=== PATIENT | female | born 1965 | race Caucasian/White ===

== ENCOUNTER 2016-09-26 19:51 | Inpatient (IN) | payer OTHER ==
[~2016-09-26] VITALS: Ht 162.6 cm; Wt 78.1 kg
[2016-09-26 19:53] VITALS: BP 125/84; PULSE 78; RESP 16; TEMP 98; O2SAT 96
[2016-09-26] MEDS ORDERED: LISI10TA3 PO (21:01)
[2016-09-26] MEDS ORDERED: ACETAMINOPHEN/HYDROcodone 325 MG/5 MG TAB PO ONE (21:15)
--- NOTE | 2016-09-26 21:33 | RADRPT ---
EXAM DATE/TIME: 09/26/2016 21:18 [facility] COMPARISON: No previous studies available for comparison. INDICATIONS : Fall down stairs. Left elbow pain. MEDICAL HISTORY : None. SURGICAL HISTORY : None. ENCOUNTER: Initial ACUITY: 1 day PAIN SCORE: 8/10 LOCATION: Left upper extremity FINDINGS: Multiple view examination of the left elbow demonstrates mildly displaced fracture through the olecra non. Extensive soft tissue swelling. Positive joint effusion. CONCLUSION: Mildly displaced fracture through the olecranon. Kedar Stack MD on September 26, 2016 at 21:31 Board Certified Radiologist. This report was verified electronically.
--- NOTE | 2016-09-26 21:59 | PD ---
HPI Chief Complaint: Fall Time Seen by Provider: 21:00 Travel History International Travel<30 days: No Contact w/Intl Traveler<30days: No Traveled to known affect area: No History of Present Illness HPI Is a 41-year-old right handed woman presents to the emergency room on a left elbow pain. She reportedly slipped on some stairs one water transplant. She fell onto her left elbow. She has significant pain and swelling on the outside the left elbow. She has pain with full range of motion. This happened about 2 hours prior to arrival. She takes a baby aspirin daily. Denies seeing her head. She did skin her knees but feels that the knees are otherwise uninjured. No other complaints. History Past Medical History Narrative Medical Hypertension Tetanus Vaccination: > 5 Years Influenza Vaccination: No Past Surgical History Surgical History: No Previous Surgery Social History Alcohol Use: Yes (SOCIALLY) Tobacco Use: No Allergies-Medications (Allergen,Severity, Reaction): Coded Allergies: No Known Allergies (Unverified , 09/26/16) Reported Meds & Prescriptions Reported Meds & Active Scripts Active Reported Lisinopril 10 Mg Tab 10 Mg PO DAILY Review of Systems Except as stated in HPI: all other systems reviewed are Neg Physical Exam Narrative GENERAL: Well-appearing 51 year-old woman, no acute distress. HEAD: Atraumatic. Normocephalic. EYES: Pupils equal and round. No scleral icterus. No injection or drainage. ENT: No nasal bleeding or discharge. Mucous membranes pink and moist. NECK: Trachea midline. No JVD. CARDIOVASCULAR: Regular rate and rhythm. No murmur appreciated. RESPIRATORY: No accessory muscle use. Clear to auscultation. Breath sounds equal bilaterally. GASTROINTESTINAL: Abdomen soft, non-tender, nondistended. Hepatic and splenic margins not palpable. MUSCULOSKELETAL: Focus examination the left arm reveals swelling and tenderness over the outside of the left elbow. There is an abrasion there. She has pain with range of motion. Distally she is neurovascularly intact. NEUROLOGICAL: Awake and alert. No obvious cranial nerve deficits. Motor grossly within normal limits. Normal speech. PSYCHIATRIC: Appropriate mood and affect; insight and judgment normal. Data Data Last Documented VS Vital Signs Date Time Temp Pulse Resp B/P Pulse Ox O2 Delivery O2 Flow Rate FiO2 09/26/16 22:10 16 09/26/16 21:01 99 Room Air 09/26/16 19:53 98.0 78 125/84 Orders Elbow, Complete (4 Vws) (09/26/16 ) Acetamin-Hydrocod 325-5 Mg ([place] 5-325 (09/26/16 21:15) Ice/Cold Pack (09/26/16 21:48) Complete Blood Count With Diff (09/26/16 21:55) Comprehensive Metabolic Panel (09/26/16 21:55) Act Partial Throm Time (Ptt) (09/26/16 21:55) Prothrombin Time / Inr (Pt) (09/26/16 21:55) Iv Access Insert/Monitor (09/26/16 21:55) Chest, Single Ap (09/26/16 ) Electrocardiogram (09/26/16 ) Sodium Chlor 0.9% 1000 Ml Inj (Ns 1000 M (09/26/16 22:00) Consult Orthopedic (09/26/16 ) (Hub Use Only)Inp Phy Cons/Ref (09/26/16 ) Admit To Inpatient (09/26/16 ) Vital Signs (Adult) Q4H (09/26/16 22:06) Activity Oob With Assistance (09/26/16 22:06) Diet Npo (09/27/16 Breakfast) Sodium Chlor 0.9% 1000 Ml Inj (Ns 1000 M (09/26/16 22:06) Sodium Chloride 0.9% Flush (Ns Flush) (09/26/16 22:15) Sodium Chloride 0.9% Flush (Ns Flush) (09/27/16 09:00) Ondansetron Inj (Zofran Inj) (09/26/16 22:15) Comprehensive Metabolic Panel (09/27/16 06:00) Complete Blood Count With Diff (09/27/16 06:00) Acetaminophen (Tylenol) (09/26/16 22:15) Acetamin-Hydrocod 325-5 Mg ([place] 5-325 (09/26/16 22:15) Morphine Inj (Morphine Inj) (09/26/16 22:15) Docusate Sodium-Senna (Erinn-Colace) (09/27/16 09:00) Magnesium Hydroxide Liq (Milk Of Magnesi (09/26/16 22:15) Sennosides (Senokot) (09/26/16 22:15) Bisacodyl Supp (Dulcolax Supp) (09/26/16 22:15) Lactulose Liq (Lactulose Liq) (09/26/16 22:15) Inpatient Certification (09/26/16 ) Admit Order (Ed Use Only) (09/26/16 ) Sling Cradle Arm (09/26/16 ) Fiberglass Splint Elbow Adult (09/26/16 ) Splint Or Brace Apply/Monitor (09/26/16 22:26) Labs Laboratory Tests Test 09/26/16 22:00 White Blood Count 7.9 TH/MM3 Red Blood Count 4.58 MIL/MM3 Hemoglobin 14.7 GM/DL Hematocrit 43.0 % Mean Corpuscular Volume 93.8 FL Mean Corpuscular Hemoglobin 32.1 PG Mean Corpuscular Hemoglobin 34.2 % Concent Red Cell Distribution Width 13.3 % Platelet Count 253 TH/MM3 Mean Platelet Volume 6.9 FL Neutrophils (%) (Auto) 63.8 % Lymphocytes (%) (Auto) 25.5 % Monocytes (%) (Auto) 6.7 % Eosinophils (%) (Auto) 3.6 % Basophils (%) (Auto) 0.4 % Neutrophils # (Auto) 5.0 TH/MM3 Lymphocytes # (Auto) 2.0 TH/MM3 Monocytes # (Auto) 0.5 TH/MM3 Eosinophils # (Auto) 0.3 TH/MM3 Basophils # (Auto) 0.0 TH/MM3 CBC Comment DIFF FINAL Differential Comment MDM Medical Decision Making Medical Screen Exam Complete: Yes Emergency Medical Condition: Yes Interpretation(s) Left elbow: Mildly displaced fracture through the olecranon. Differential Diagnosis Elbow fracture, contusion, strain or sprain, other Narrative Course Medical decision making This is a 51 year-old woman with left elbow fracture. She has a comminuted olecranon fracture with some distraction. I spoke with Kyler Ying, with Dr. Chirinos. Recommend admission for surgical repair. Diagnosis Primary Impression: Olecranon fracture Indra Dias MD Sep 26, 2016 21:59
[2016-09-26] MEDS ORDERED: SODIUM CHLOR 0.9% 1000 ML INJ 1,000 ML IV SCH (22:00)
--- NOTE | 2016-09-26 22:12 | HHI.HP ---
[facility] Primary Care Physician Non-Staff Admission Diagnosis Diagnoses: (1) Fall Diagnosis: Principal (2) Elbow fracture Diagnosis: Principal (3) Dehydration Diagnosis: Principal (4) HTN (hypertension) Diagnosis: Principal Travel History International Travel<30 Days: No Contact w/Intl Traveler <30 Da: No Traveled to Known Affected Are: No History of Present Illness This is a 51-year-old female with a PMH of HTN who presented to the ER with complaints of left elbow pain following fall. States she went to go water her friends plant and slipped on wet pavement as it had just rained. Denies any LOC or head trauma. On arrival, BP 125/84, HR 78, O2 sat 96% on RA, Afebrile. Chemistry essentially unremarkable except for GFR 83. INR 0.9. CXR with left basilar atelectasis. Elbow X-ray with mildly displaced fracture through the olecranon. Review of Systems Except as stated in HPI: all other systems reviewed are Neg ROS: 14 point review of systems otherwise negative. Past Family Social History Past Medical History PMH: HTN Past Surgical History PAST SURGICAL HISTORY: None Allergies: Coded Allergies: No Known Allergies (Unverified , 09/26/16) Family History PAST FAMILY HISTORY: Reviewed. No h/o DM or CAD Social History PAST SOCIAL HISTORY: Occasional alcohol. Negative for tobacco or drugs. Physical Exam Vital Signs Vital Signs Date Time Temp Pulse Resp B/P Pulse Ox O2 Delivery O2 Flow Rate FiO2 09/26/16 22:10 16 09/26/16 21:01 16 99 Room Air 09/26/16 19:53 98.0 78 16 125/84 96 Room Air Physical Exam PE: GENERAL: Pleasant middle-aged white female in no acute distress. HEENT: PERRLA, EOMI. No scleral icterus or conjunctival pallor. No lid lag or facial droop. CARDIOVASCULAR: Regular rate and rhythm. No obvious murmurs to auscultation. No chest tenderness to palpation. RESPIRATORY: No obvious rhonchi or wheezing. Clear to auscultation. Breath sounds equal bilaterally. GASTROINTESTINAL: Abdomen soft, non-tender, nondistended. BS normal. MUSCULOSKELETAL: Extremities without clubbing, cyanosis, or edema. No obvious deformities. Decreased ROM of LUE due to injury. NEUROLOGICAL: Awake, alert and oriented x4. No focal neurologic deficits. Moving both upper and lower extremities spontaneously. Assessment and Plan Problem List: (1) Fall ICD Code: W19.XXXA Status: Acute (2) Elbow fracture ICD Code: S42.409A Status: Acute (3) Dehydration ICD Code: E86.0 Status: Acute (4) HTN (hypertension) ICD Code: I10 Status: Acute Assessment and Plan A/P: 1. Fall: s/p mechanical slip and fall on wet pavement, no LOC or head trauma reported. 2. Left Elbow Fx: s/p fall. X-ray w/ mildly displaced fracture through olecranon, images reviewed by me. Ortho consulted by ER physician, plan is for surgical intervention in am. NPO, IVF, analgesics/antiemetics as needed. 3. Dehydration: GFR 83, BUN/Creatinine normal, IVF for hydration, repeat labs in am. 4. HTN: Controlled. Monitor BP. 5. DVT Prophylaxis: Anticoagulation post op per Ortho 6. Social work for d/c planning as needed. 7. Case discussed w/ ER physician at length Physician Certification 2 Midnight Certification Type: Admission for Inpatient Services Order for Inpatient Services The services are ordered in accordance with Medicare regulations or non- Medicare payer requirements, as applicable. In the case of services not specified as inpatient-only, they are appropriately provided as inpatient services in accordance with the 2-midnight benchmark. Estimated LOS (days): 2 days is the estimated time the patient will need to remain in the hospital, assuming treatment plan goals are met and no additional complications. Post-Hospital Plan: Not yet determined Akanksha Mills MD Sep 26, 2016 22:12
[2016-09-26] MEDS ORDERED: SODIUM CHLORIDE 0.9% FLUSH 10 ML FLUSH IV FLUSH PRN (22:15)
[2016-09-26] MEDS ORDERED: MAGNESIUM HYDROXIDE SUSP 30 ML CUP PO PRN (22:15)
[2016-09-26] MEDS ORDERED: ACETAMINOPHEN 325 MG TAB PO PRN (22:15)
[2016-09-26] MEDS ORDERED: ONDANSETRON HCL 4 MG/2 ML VIAL IVP PRN (22:15)
[2016-09-26] MEDS ORDERED: ACETAMINOPHEN/HYDROcodone 325 MG/5 MG TAB PO PRN (22:15)
[2016-09-26] MEDS ORDERED: MORPHINE SULFATE 4 MG/ML INJ IV PRN (22:15)
[2016-09-26] MEDS ORDERED: BISACODYL 10 MG SUPP RECTAL PRN (22:15)
[2016-09-26] MEDS ORDERED: SENNOSIDES 8.6 MG TAB PO PRN (22:15)
[2016-09-26] MEDS ORDERED: LACTULOSE SYRUP 20 GM/30 ML CUP PO PRN (22:15)
--- NOTE | 2016-09-26 22:15 | RADRPT ---
EXAM DATE/TIME: 09/26/2016 21:59 [facility] COMPARISON: No previous studies available for comparison. INDICATIONS : Evaluate for pneumonia, pneumothorax or communicable disease. Pre op for left elbow fracture. MEDICAL HISTORY : None. SURGICAL HISTORY : None. ENCOUNTER: Initial ACUITY: 1 day PAIN SCORE: 0/10 LOCATION: chest FINDINGS: A single view of the chest is obtained. No evidence of mass, infiltrate or effusion. Minimal linear densities left lung base. The cardiomediastinal contours are unremarkable. Osseous structures are in tact. CONCLUSION: Left basilar subsegmental atelectasis. Kedar Stack MD on September 26, 2016 at 22:12 Board Certified Radiologist. This report was verified electronically.
[2016-09-26] MEDS: SODIUM CHLOR 0.9% 1000 ML INJ 1,000 ML IV SCH (22:19)
[2016-09-26 22:21] LABS: BASOPHIL % 0.4 % (0.0-2.0); EOSINOPHIL # 0.3 TH/MM3 (0-0.4); EOSINOPHIL % 3.6 % (0.0-4.0); HEMO FLAGS DIFF FINAL; LYMPH % 25.5 % (9.0-44.0); MEAN CELL VOLUME 93.8 FL (80.0-100.0); MEAN CORPUSCULAR HEMOGLOBIN 32.1 PG (27.0-34.0); MEAN CORPUSCULAR HGB CONC 34.2 % (32.0-36.0); MONO % 6.7 % (0.0-8.0); NEUT % 63.8 % (16.0-70.0); PLATELET COUNT 253 TH/MM3 (150-450); RED BLOOD COUNT 4.58 MIL/MM3 (4.00-5.30); RED CELL DISTRIBUTION WIDTH 13.3 % (11.6-17.2); WHITE BLOOD COUNT 7.9 TH/MM3 (4.0-11.0)
[2016-09-26 22:44] LABS: ALT (GPT) 37 U/L (10-53)
[2016-09-26 22:47] LABS: ALKALINE PHOSPHATASE 84 U/L (45-117); TOTAL BILIRUBIN ADULT 0.3 MG/DL (0.2-1.0)
[2016-09-26 22:48] LABS: APTT (PATIENT) 27.5 SEC (24.3-30.1); INTERNATIONAL NORMALIZED RATIO 0.9 RATIO
[2016-09-26 23:02] LABS: ANION GAP 10 MEQ/L (5-15); AST (GOT) 49 U/L (15-37); BICARBONATE 22.9 MEQ/L (21.0-32.0); BLOOD UREA NITROGEN 16 MG/DL (7-18); CHLORIDE 101 MEQ/L (98-107); GLOMERULAR FILTRATION RATE 83 ML/MIN (>89); POTASSIUM 4.5 MEQ/L (3.5-5.1); SODIUM (NA) 134 MEQ/L (136-145)
[2016-09-26 23:34] VITALS: BP 118/64
[2016-09-27 00:06] VITALS: BP 125/69; PULSE 75; RESP 18; TEMP 97.2; O2SAT 94
[2016-09-27] MEDS ORDERED: ASPI81CH CHEW (00:30)
[2016-09-27] MEDS ORDERED: SODIUM CHLORID 0.9% 500 ML IV PRN (01:15)
[2016-09-27] MEDS ORDERED: LACTATED RINGER'S 1000 ML IV PRN (01:15)
[2016-09-27 04:10] VITALS: BP 110/65; PULSE 73; RESP 18; TEMP 98; O2SAT 95
[2016-09-27] MEDS ORDERED: ENALAPRILAT 1.25 MG/ML VIAL IV PRN (06:00)
[2016-09-27] MEDS ORDERED: cloNIDine HCL 0.1 MG TAB PO PRN (06:00)
[2016-09-27] MEDS ORDERED: HYDR-3580 PO (06:37)
--- NOTE | 2016-09-27 06:38 | PD.ORT.PN ---
Subjective Subjective Remarks s/p fall at home left elbow pain. no other complaints. Objective Vitals Vital Signs Date Time Temp Pulse Resp B/P Pulse Ox O2 Delivery O2 Flow Rate FiO2 09/27/16 04:10 98.0 73 18 110/65 95 09/27/16 00:06 97.2 75 18 125/69 94 09/26/16 23:34 72 16 118/64 100 09/26/16 22:10 16 09/26/16 21:01 16 99 Room Air 09/26/16 19:53 98.0 78 16 125/84 96 Room Air Result Diagram: 09/26/16219909/26/162199 Other Results Laboratory Tests Test 09/26/16 22:00 Prothrombin Time 10.0 SEC (9.8-11.6) Prothromb Time International 0.9 RATIO Ratio Objective Remarks LUE: +long arm splint .intact. NVI Assessment & Plan Assessment and Plan 1) Left Olecranon Fx -npo -sign consents -surgery this AM Jose Luis Garcia Sep 27, 2016 06:38
[2016-09-27 06:40] LABS: AUTOMATED NEUTROPHIL # 4.8 TH/MM3 (1.8-7.7); BASOPHIL % 0.5 % (0.0-2.0); EOSINOPHIL # 0.2 TH/MM3 (0-0.4); EOSINOPHIL % 2.7 % (0.0-4.0); HEMATOCRIT 35.3 % (35.0-46.0); HEMO FLAGS DIFF FINAL; LYMPHOCYTE # 1.7 TH/MM3 (1.0-4.8); MEAN CELL VOLUME 92.5 FL (80.0-100.0); MEAN CORPUSCULAR HEMOGLOBIN 32.3 PG (27.0-34.0); MEAN CORPUSCULAR HGB CONC 34.9 % (32.0-36.0); MONO % 7.9 % (0.0-8.0); NEUT % 65.9 % (16.0-70.0); PLATELET COUNT 209 TH/MM3 (150-450); RED BLOOD COUNT 3.81 MIL/MM3 (4.00-5.30); RED CELL DISTRIBUTION WIDTH 13.4 % (11.6-17.2); WHITE BLOOD COUNT 7.3 TH/MM3 (4.0-11.0)
[2016-09-27 06:44] LABS: ALKALINE PHOSPHATASE 56 U/L (45-117); ALT (GPT) 28 U/L (10-53); ANION GAP 11 MEQ/L (5-15); AST (GOT) 21 U/L (15-37); BICARBONATE 22.9 MEQ/L (21.0-32.0); BLOOD UREA NITROGEN 13 MG/DL (7-18); CHLORIDE 103 MEQ/L (98-107); GLOMERULAR FILTRATION RATE 101 ML/MIN (>89); POTASSIUM 4.1 MEQ/L (3.5-5.1); SODIUM (NA) 137 MEQ/L (136-145); TOTAL BILIRUBIN ADULT 0.4 MG/DL (0.2-1.0)
[2016-09-27] MEDS: SODIUM CHLOR 0.9% 1000 ML INJ 1,000 ML IV SCH (08:06)
[2016-09-27] MEDS: DOCUSATE SODIUM 50 MG/SENNA 8.6 MG TAB PO SCH ×2 (08:15→19:17)
[2016-09-27] MEDS: SODIUM CHLORIDE 0.9% FLUSH 10 ML FLUSH IV FLUSH SCH ×2 (08:16→19:17)
[2016-09-27 08:20] VITALS: BP 123/70; PULSE 80; RESP 16; TEMP 97.1; O2SAT 97
--- NOTE | 2016-09-27 08:46 | MB ---
cc: TOM AUGUST CAMILLE MD DATE OF CONSULTATION: 09/27/2016 REASON FOR CONSULTATION: Left olecranon fracture. CONSULTING PHYSICIAN: Dr. Mills. HISTORY Phuong is a 51 year-old female who has a history of hypertension. She was going to water plants for a friend. She stepped on the wet pavement because of the rain. She had immediate left elbow pain. She landed directly on the left elbow. She had pain with elbow motion. She denies any dizziness, syncope, loss of consciousness. She was in the emergency room. X-rays revealed a comminuted left olecranon fracture. She is currently awake and on the orthopedic floor. Her only complaint is her left elbow. The pain is worse with movement and has improved with rest. PAST MEDICAL HISTORY ILLNESSES: Hypertension SURGERIES None ALLERGIES None. MEDICATIONS 1. Lisinopril. 2. Aspirin. SOCIAL HISTORY The patient denies tobacco or drug use. She drinks alcohol occasionally. FAMILY HISTORY Noncontributory. REVIEW OF SYSTEMS The patient denies headache, visual changes, neck pain, chest pain, shortness of breath, abdominal pain, nausea, vomiting or recent weight loss. She complains of left elbow pain. Pain is worse with movement. PHYSICAL EXAMINATION The patient is a pleasant 51 year-old female in no acute distress. She is awake and alert. She is alert and oriented x3. VITAL SIGNS: Temperature 90.0, pulse 73, respirations 18, blood pressure 110/65, O2 sat 95% on room air. Head: The patient is a normocephalic. Pupils are equal. Neck: Soft, nontender. Trachea is midline. Abdomen: Soft, nontender, nondistended. Extremities: Examination of the left arm reveals no tenderness in her shoulder, wrist or fingers. She has pain with any elbow motion. She has mild swelling around the elbow. She has tenderness to palpation of the olecranon. She has good capillary refill of her fingers. Sensation is grossly intact in all fingers. Examination of right arm reveals no pain with shoulder, elbow, wrist motion. Skin is intact. Radial pulse is palpable. Sensation is intact in all fingers. Examination of the bilateral lower extremities reveals no pain with hip, knee or ankle motion. Skin is intact. Dorsalis pedis pulse is palpable. X-RAYS: X-rays of the left elbow were reviewed. X-rays reveal comminuted left olecranon fracture. IMPRESSION Comminuted left olecranon fracture. PLAN Treatment options were discussed with the patient. I discussed both surgical and nonsurgical options. The risks of surgery include bleeding, infection, injury to arteries, nerves, or blood vessels, nonunion, malunion, painful hardware, loss of motion, elbow stiffness, elbow arthritis as well as medical complications associated anesthesia. All questions were answered. I will plan on surgery today. A mid-level provider in my office, nurse practitioner or PA, may see this patient on a follow-up basis and continue to implement the objective of this plan including: Starting or adjusting medications, injections of muscle, tendon, bursa or joints, cast application, orthotic or brace application, physical therapy, further radiographic studies including x-ray, MRI, CT, ultrasounds or bone scan, vascular studies, neurologic studies, or other specialist consultations, and proceeding with surgical management as appropriate. MD KULWINDER Martinez/CARLOS /7:03 AM /8:39 AM
[2016-09-27] MEDS ORDERED: VANCOMYCIN HCL 1000 MG VIAL ONE (08:55)
[2016-09-27] MEDS ORDERED: ceFAZolin 2 GM PREMIX 50 ML ONE (08:56)
[2016-09-27] MEDS ORDERED: GENTAMICIN SULFATE 80 MG/2 ML VIAL ONE (08:56)
[2016-09-27] MEDS: LISINOPRIL 10 MG TAB PO SCH (09:00)
[2016-09-27] MEDS ORDERED: fentaNYL CITRATE 250 MCG/5 ML AMP ONE (09:21)
[2016-09-27] MEDS ORDERED: BACITRACIN OPHT OINT 3.5 GM TUBO ONE (10:21)
[2016-09-27] MEDS ORDERED: BACITRACIN TOP OINT 15 GM TUBE ONE (10:21)
--- NOTE | 2016-09-27 10:36 | PD.OP ---
cc: Moshe Chirinos MD Operative Report Date of Surgery: Sep 27, 2016 Preoperative Diagnosis: Comminuted left olecranon fracture Postoperative Diagnosis: Procedure: Open reduction internal fixation left olecranon fracture Anesthesia: Gen. Surgeon: Moshe Chirinos Asset Card Clerk(s): BUCKY Lawson PA-C The surgical procedure was assisted by my physician safety assistant. My P.A. presence was necessary throughout this case for the manipulation and positioning of the surgical extremity. My P.A. was assisting me throughout the duration of this procedure. The skill set of a physician safety assistant was medically necessary to complete this procedure. During the surgical case the director surgical was working at the back table and the physician safety assistant was directly assisting me. Operation and Findings: Patient was seen and evaluated preoperatively. Patient was found to have a displaced intra-articular olecranon fracture. The risk and benefits of the surgery were discussed in depth and informed consent was obtained. Risk of surgery include bleeding, infection, painful hardware, wound, case, elbow stiffness, loss of motion, elbow arthritis, injuries to arteries nerves or blood vessels, weakness and numbness of hand, as well as medical complications associated with general anesthesia. All questions were answered. Patient was brought to operating room. IV sedation and anesthesia were administered. Patient was placed into a lateral decubitus position. Timeout procedure was performed. IV antibiotics were administered prior to incision. The operative arm was prepped with alcohol followed by Hibiclens and draped in usual sterile fashion. Procedure began with a 2 inch incision over the olecranon. Patient had a large and deep abrasion over the proximal ulna. The incision was short and out of the abrasion to avoid possible wound infection. He has of the skin abrasion screw fixation was utilized for stabilization of the fracture instead of the plate. Subcutaneous tissue dissected with Bovie. Fracture site was visualized. Fascia was elevated around the fracture site. There was mild comminution of the fracture site. Fracture fragments were gently manipulated. The fracture was manually reduced. Multiple K wires were placed for provisional fixation. Fluoroscopy confirmed excellent alignment of fracture. At this point a 3.5 cortical screw was placed across the fracture site from the tip the olecranon to the anterior aspect of the ulna. The screws predrilled and premeasured for appropriate length. Next a guidepin for the Synthes 6.5 cannulated screws were placed from the tip of the olecranon into the shaft of the ulna. Fluoroscopy confirmed guidepin placement. Screw length was measured. A cannulated drill was placed over the guidepin. A 110 mm lag screw was placed over the wire. K wires were removed. Final fluoroscopy revealed excellent of fractures well-placed hardware. Articular surface appeared to be in near anatomic alignment. Wound was now thoroughly irrigated. Incision was now closed with #1 Vicryl, 3-0 Vicryl, and adelfo. Sterile dressings were applied. Patient's placed a well molded well-padded splint. Patient was transferred to recovery in stable condition. Moshe Chirinos MD Sep 27, 2016 10:36
[2016-09-27] MEDS ORDERED: Post-op Orders (for Pharmacy) MISC XX ONE (10:45)
[2016-09-27] MEDS ORDERED: MORPHINE SULFATE 4 MG/ML INJ IV PUSH PRN (10:45)
--- NOTE | 2016-09-27 10:45 | HHI.DCPOC ---
Discharge Care Plan Diagnosis: (1) Olecranon fracture Your Health Problems Are: Difficulty with ADL Exercise Tolerance Goals to Promote Your Health * To prevent worsening of your condition and complications * To maintain your health at the optimal level Directions to Meet Your Goals Take your medications as prescribed Follow your dietary instruction Follow activity as directed Keep your appointments as scheduled Take your immunizations and boosters as scheduled If your symptoms worsen call your PCP, if no PCP go to Urgent Care Center or Emergency Room Smoking is Dangerous to Your Health. Avoid second hand smoke Call the 24-hour hour crisis hotline for domestic abuse at Chris Cruz MD Sep 27, 2016 10:45
[2016-09-27] MEDS ORDERED: DO NOT ADM ANY ANTICOAGULANT DRUGS PRN (10:51)
[2016-09-27] MEDS ORDERED: *morphine SULFATE 8 MG/ML PERIprocedure ONLY ONE ×2 (11:08→11:17)
--- NOTE | 2016-09-27 11:19 | RADRPT ---
EXAM DATE/TIME: 09/27/2016 10:26 [facility] COMPARISON: ELBOW LEFT COMPLETE (4 VWS), September 26, 2016, 21:18. INDICATIONS : Left elbow fracture. MEDICAL HISTORY : None. SURGICAL HISTORY : None. ENCOUNTER: Initial ACUITY: 1 day PAIN SCORE: Non-responsive. LOCATION: Left elbow. FINDINGS: Surgical pins traverse the olecranon with excellent anatomical alignment of the fracture fragments. CONCLUSION: Intact postsurgical changes. Joon Enriquez MD on September 27, 2016 at 11:17 Board Certified Radiologist. This report was verified electronically.
[2016-09-27 12:40] VITALS: BP 116/67; PULSE 81; RESP 16; TEMP 97.6; O2SAT 94
--- NOTE | 2016-09-27 12:53 | HHI.PR ---
Subjective Remarks Follow-up left olecranon fracture. Tolerated surgery complaining of pain. Anesthesia records reviewed. Seen with . Discussed with RN, possible discharge later today when cleared by orthopedic surgery Objective Vitals Vital Signs Date Time Temp Pulse Resp B/P Pulse Ox O2 Delivery O2 Flow Rate FiO2 09/27/16 11:45 82 16 134/77 97 Nasal Cannula 2 09/27/16 11:30 76 16 129/77 97 Nasal Cannula 2 09/27/16 11:15 76 16 152/69 97 Nasal Cannula 2 09/27/16 11:00 88 16 152/81 99 Nasal Cannula 2 09/27/16 10:55 98.0 90 16 166/87 99 Nasal Cannula 2 09/27/16 08:20 97.1 80 16 123/70 97 09/27/16 04:10 98.0 73 18 110/65 95 09/27/16 00:06 97.2 75 18 125/69 94 09/26/16 23:34 72 16 118/64 100 09/26/16 22:10 16 09/26/16 21:01 16 99 Room Air 09/26/16 19:53 98.0 78 16 125/84 96 Room Air I/O 09/26/16 09/26/16 09/26/16 09/27/16 09/27/16 09/27/16 07:00 15:00 23:00 07:00 15:00 23:00 Intake Total 498 ml 50 ml Balance 498 ml 50 ml Intake IV Total 498 ml 50 ml # Voids 1 Result Diagram: 09/27/16 0604 09/27/16 0604 Imaging Last Impressions Elbow X-Ray 09/27/16 0000 Signed Impressions: Service Date/Time: Tuesday, September 27, 2016 10:26 - CONCLUSION: Intact postsurgical changes. Joon Enriquez MD Chest X-Ray 09/26/16 0000 Signed Impressions: Service Date/Time: Monday, September 26, 2016 21:59 - CONCLUSION: Left basilar subsegmental atelectasis. Kedar Stack MD Objective Remarks Well-developed, well-nourished in no distress Lungs are clear equal in expansion Regular rate and rhythm Abdomen soft nontender Left upper extremity with dry clean dressing Alert and oriented Procedures ORIF left olecranon fracture A/P Problem List: (1) Fall ICD Code: W19.XXXA Status: Acute (2) Elbow fracture ICD Code: S42.409A Status: Acute (3) Dehydration ICD Code: E86.0 Status: Acute (4) HTN (hypertension) ICD Code: I10 Status: Acute Assessment and Plan 1. Fall: s/p mechanical slip and fall on wet pavement, no LOC or head trauma reported. 2. Left Elbow Fx: s/p fall. X-ray w/ mildly displaced fracture through olecranon, images reviewed by me. Status post ORIF. Stable continue postoperative care with wound care, PT, pain management with Lortab and IV morphine 3. Dehydration: Improved discontinue IV hydration 4. HTN: Controlled. Monitor BP. 5. Mild AST elevation. Improved. 6. Mild hyponatremia. Improved 7. DVT Prophylaxis: Anticoagulation post op per Ortho Discharge Planning Discharge patient to home Condition on discharge: Improved Regular Diet as tolerated Ad Jamila activity nonweightbearing left upper extremity Rx written: Lortab Follow-up with primary care physician in one week Chris Cruz MD Sep 27, 2016 12:53
[2016-09-27] MEDS ORDERED: PROPOFOL 200 MG/20 ML AMP IV ONE (15:45)
[2016-09-27] MEDS ORDERED: NEOSTIGMINE 3 MG/3 ML SYR IV ONE (15:45)
[2016-09-27] MEDS ORDERED: ONDANSETRON HCL 4 MG/2 ML VIAL IV PUSH ONE (15:46)
[2016-09-27 16:00] VITALS: BP 131/73; PULSE 77; RESP 16; TEMP 96.1; O2SAT 97
[2016-09-27] MEDS ORDERED: ceFAZolin 2 GM PREMIX 50 ML IV SCH (18:00)
[2016-09-27] MEDS: ACETAMINOPHEN/HYDROcodone 325 MG/7.5 MG TAB PO PRN (18:24)
[2016-09-27 21:50] VITALS: BP 150/76; PULSE 77; RESP 17; TEMP 98.8; O2SAT 93
[2016-09-28 01:00] VITALS: BP 156/85; PULSE 82; RESP 17; TEMP 96.7; O2SAT 95
[2016-09-28 03:19] VITALS: O2SAT 95
[2016-09-28 04:05] VITALS: BP 132/72; PULSE 77; RESP 16; TEMP 97.4; O2SAT 93
[2016-09-28] MEDS: ACETAMINOPHEN/HYDROcodone 325 MG/7.5 MG TAB PO PRN ×2 (04:42→10:50)
--- NOTE | 2016-09-28 07:04 | PD.ORT.PN ---
Subjective Subjective Remarks Pain controlled Objective Vitals Vital Signs Date Time Temp Pulse Resp B/P Pulse Ox O2 Delivery O2 Flow Rate FiO2 09/28/16 04:05 97.4 77 16 132/72 93 09/28/16 03:19 95 Nasal Cannula 2.00 09/28/16 01:00 96.7 82 17 156/85 95 09/27/16 21:50 98.8 77 17 150/76 93 09/27/16 16:00 96.1 77 16 131/73 97 09/27/16 12:40 97.6 81 16 116/67 94 09/27/16 11:45 82 16 134/77 97 Nasal Cannula 2 09/27/16 11:30 76 16 129/77 97 Nasal Cannula 2 09/27/16 11:15 76 16 152/69 97 Nasal Cannula 2 09/27/16 11:00 88 16 152/81 99 Nasal Cannula 2 09/27/16 10:55 98.0 90 16 166/87 99 Nasal Cannula 2 09/27/16 08:20 97.1 80 16 123/70 97 I/O 09/27/16 09/27/16 09/27/16 09/28/16 09/28/16 09/28/16 07:00 15:00 23:00 07:00 15:00 23:00 Intake Total 498 ml 530 ml Balance 498 ml 530 ml Intake Oral 480 ml IV Total 498 ml 50 ml # Voids 1 2 # Bowel Movements 0 Result Diagram: 09/27/16 0604 09/27/16 0604 Objective Remarks LUE: +long arm splint intact. NVI Assessment & Plan Assessment and Plan 1) Left Olecranon Fx ORIF POD 1 Nonweightbearing left upper extremity Maintain splint Discharge to home today Follow-up with Dr. Chirinos or PA in 2 weeks Bryson Ying Jr. Sep 28, 2016 07:03
[2016-09-28 08:00] VITALS: BP 134/81; PULSE 65; RESP 18; TEMP 98; O2SAT 97
--- NOTE | 2016-09-28 08:48 | HHI.PR ---
Subjective Remarks Follow-up left olecranon fracture. She is doing okay pain control. Advised not to return to work until seen by PCP or orthopedic surgery. She will also take MiraLAX. Discussed with RN Objective Vitals Vital Signs Date Time Temp Pulse Resp B/P Pulse Ox O2 Delivery O2 Flow Rate FiO2 09/28/16 08:00 98.0 65 18 134/81 97 09/28/16 04:05 97.4 77 16 132/72 93 09/28/16 03:19 95 Nasal Cannula 2.00 09/28/16 01:00 96.7 82 17 156/85 95 09/27/16 21:50 98.8 77 17 150/76 93 09/27/16 16:00 96.1 77 16 131/73 97 09/27/16 12:40 97.6 81 16 116/67 94 09/27/16 11:45 82 16 134/77 97 Nasal Cannula 2 09/27/16 11:30 76 16 129/77 97 Nasal Cannula 2 09/27/16 11:15 76 16 152/69 97 Nasal Cannula 2 09/27/16 11:00 88 16 152/81 99 Nasal Cannula 2 09/27/16 10:55 98.0 90 16 166/87 99 Nasal Cannula 2 I/O 09/27/16 09/27/16 09/27/16 09/28/16 09/28/16 09/28/16 07:00 15:00 23:00 07:00 15:00 23:00 Intake Total 498 ml 530 ml 240 ml 240 ml Balance 498 ml 530 ml 240 ml 240 ml Intake Oral 480 ml 240 ml 240 ml IV Total 498 ml 50 ml # Voids 1 2 2 3 # Bowel Movements 0 0 0 Result Diagram: 09/27/16 0604 09/27/16 0604 Imaging Last Impressions Elbow X-Ray 09/27/16 0000 Signed Impressions: Service Date/Time: Tuesday, September 27, 2016 10:26 - CONCLUSION: Intact postsurgical changes. Joon Enriquez MD Chest X-Ray 09/26/16 0000 Signed Impressions: Service Date/Time: Monday, September 26, 2016 21:59 - CONCLUSION: Left basilar subsegmental atelectasis. Kedar Stack MD Objective Remarks Well-developed, well-nourished in no distress Lungs are clear equal in expansion Regular rate and rhythm Abdomen soft nontender Left upper extremity with dry clean dressing Alert and oriented No significant change in PE from previous Procedures ORIF left olecranon fracture A/P Problem List: (1) Fall ICD Code: W19.XXXA Status: Acute (2) Elbow fracture ICD Code: S42.409A Status: Acute (3) Dehydration ICD Code: E86.0 Status: Acute (4) HTN (hypertension) ICD Code: I10 Status: Acute Assessment and Plan 1. Fall: s/p mechanical slip and fall on wet pavement, no LOC or head trauma reported. Fall precautions. 2. Left Elbow Fx: s/p fall. X-ray w/ mildly displaced fracture through olecranon, images reviewed by me. Status post ORIF. Stable continue postoperative care with wound care, PT, pain management with Lortab and IV morphine. Counseled regarding narcotic 3. Dehydration: Improved discontinue IV hydration 4. HTN: Controlled. Monitor BP. 5. Mild AST elevation. Improved. 6. Mild hyponatremia. Improved 7. DVT Prophylaxis: Anticoagulation post op per Ortho. Patient ambulatory. Discharge Planning Discharge patient to home Condition on discharge: Improved Regular Diet as tolerated Ad Jamila activity nonweightbearing left upper extremity Rx written: Lortab Follow-up with primary care physician in one week Chris Cruz MD Sep 28, 2016 08:48
[2016-09-28] MEDS: DOCUSATE SODIUM 50 MG/SENNA 8.6 MG TAB PO SCH (09:04)
[2016-09-28] MEDS: LISINOPRIL 10 MG TAB PO SCH (09:04)
[2016-09-28] MEDS: SODIUM CHLORIDE 0.9% FLUSH 10 ML FLUSH IV FLUSH SCH (09:07)
--- NOTE | 2016-09-28 10:34 | EKG ---
Date Performed: 09/26/2016 Time Performed: 22:21:07 PTAGE: 51 years EKG: Sinus rhythm MODERATE T-WAVE ABNORMALITY, CONSIDER ANTERIOR ISCHEMIA Poor R wave progression ABNORMAL ECG NO PREVIOUS TRACING DOCTOR: Rajesh Vega Interpretating Date/Time 09/28/2016 10:33:14
--- NOTE | 2016-09-28 10:35 | EKG ---
Date Performed: 09/27/2016 Time Performed: 03:22:00 PTAGE: 51 years EKG: Sinus rhythm . Septal T wave changes are nonspecific Borderline ECG PREVIOUS TRACING 09/26/2016 22.21.07 Compared to prior tracing no significant change DOCTOR: Rajesh Vega Interpretating Date/Time 09/28/2016 10:34:27
== END 2016-09-28 11:03 | disposition home or self-care (01) | DRG 511 ==
LOC: NEPD 19:51 → NEDA 22:18 → N06A 23:48
PROVIDERS: ADMIT Internal Medicine; ATTEND Internal Medicine
PROC: 0PSL04Z Reposition Left Ulna with Internal Fixation Device, Open Approach (ICD-10-PCS; principal; 2016-09-27 09:30)
DX: S52.022A Displaced fracture of olecranon process without intraarticular extension of left ulna, initial encounter for closed fracture (principal); J98.11 Atelectasis; I10 Essential (primary) hypertension; E86.0 Dehydration; W01.0XXA Fall on same level from slipping, tripping and stumbling without subsequent striking against object, initial encounter; Y93.89 Activity, other specified; Y92.007 Garden or yard of unspecified non-institutional (private) residence as the place of occurrence of the external cause; Z79.82 Long term (current) use of aspirin
CPT/HCPCS: 71010; 73070; 73080; 76000; 80053; 85025; 85610; 85730; 93005; C1713; C1769; J0690; J1580; J2270; J2405; J2710; J3010; J3370; J7030